=== PATIENT | female | born 1990 | race Two or more races ===

== ENCOUNTER → 2017-01-02 | Outpatient (CLI) | payer BC ==
[2017-01-02 09:27] LABS: Basophils # (auto) 0 uL; Basophils % (auto) 0.5 % (0.0-2.0); Eosinophils # (auto) 0.2 uL; Eosinophils % (auto) 2.1 % (0.0-7.0); Hematocrit 39.4 % (36.0-46.0); Hemoglobin 13.7 g/dL (12.2-16.2); Lymphocytes # (auto) 1.4 uL; Lymphocytes % (auto) 13.2 % (10.0-50.0); Mean Corpuscular Hemoglobin 33.5 pg (28.0-32.0); Mean Corpuscular Hgb Conc. 34.8 g/dL (32.0-36.0); Mean Corpuscular Volume 96.2 fL (80.0-100.0); Mean Platelet Volume 8.4 fL (6.9-10.8); Monocytes # (auto) 0.6 uL; Monocytes % (auto) 5.7 % (0.0-12.0); Neutrophils # (auto) 8.2 uL; Neutrophils % (auto) 78.5 % (37.0-80.0); Platelet Count (auto) 255 10^3/uL (140-450); Red Cell Distribution Width 13.1 % (11.8-14.3); White Blood Cell 10.5 10^3/uL (4.4-10.8)
== END | disposition home or self-care (01) ==
LOC: LAB 08:51
PROVIDERS: ATTEND Obstetrics & Gynecology
DX: Z34.80 Encounter for supervision of other normal pregnancy, unspecified trimester (principal); Z31.430 Encounter of female for testing for genetic disease carrier status for procreative management; R82.79 Other abnormal findings on microbiological examination of urine
CPT/HCPCS: 36415; 80307; 81220; 84702; 85025; 86703; 86762; 86850; 86900; 86901; 87086; 87340

== ENCOUNTER → 2017-04-13 | Outpatient (CLI) | payer BC ==
[2017-04-13 08:16] LABS: Basophils # (auto) 0 uL; Basophils % (auto) 0.1 % (0.0-2.0); Eosinophils # (auto) 0.4 uL; Eosinophils % (auto) 4.2 % (0.0-7.0); Hematocrit 36.6 % (36.0-46.0); Hemoglobin 12.4 g/dL (12.2-16.2); Lymphocytes # (auto) 1.4 uL; Lymphocytes % (auto) 13.7 % (10.0-50.0); Mean Corpuscular Hemoglobin 33.6 pg (28.0-32.0); Mean Corpuscular Hgb Conc. 33.9 g/dL (32.0-36.0); Mean Corpuscular Volume 98.9 fL (80.0-100.0); Monocytes # (auto) 0.8 uL; Monocytes % (auto) 7.7 % (0.0-12.0); Neutrophils # (auto) 7.4 uL; Neutrophils % (auto) 74.3 % (37.0-80.0); Platelet Count (auto) 251 10^3/uL (140-450); Red Cell Distribution Width 12.8 % (11.8-14.3)
== END | disposition home or self-care (01) ==
LOC: LAB 07:59
PROVIDERS: ATTEND Obstetrics & Gynecology
DX: O99.810 Abnormal glucose complicating pregnancy (principal); Z3A.00 Weeks of gestation of pregnancy not specified
CPT/HCPCS: 36415; 82951; 83036; 85025

== ENCOUNTER → 2017-06-21 | Outpatient (CLI) | payer BC ==
[2017-06-21 14:17] LABS: Basophils # (auto) 0 uL; Basophils % (auto) 0.2 % (0.0-2.0); Eosinophils # (auto) 0.1 uL; Eosinophils % (auto) 1.2 % (0.0-7.0); Hematocrit 35.3 % (36.0-46.0); Hemoglobin 12.2 g/dL (12.2-16.2); Lymphocytes # (auto) 1.4 uL; Lymphocytes % (auto) 14.3 % (10.0-50.0); Mean Corpuscular Hemoglobin 33.4 pg (28.0-32.0); Mean Corpuscular Hgb Conc. 34.7 g/dL (32.0-36.0); Mean Corpuscular Volume 96.5 fL (80.0-100.0); Monocytes # (auto) 0.9 uL; Monocytes % (auto) 9.5 % (0.0-12.0); Neutrophils # (auto) 7.4 uL; Neutrophils % (auto) 74.8 % (37.0-80.0); Platelet Count (auto) 266 10^3/uL (140-450); Red Blood Cells 3.66 10^6/uL (4.0-5.20); Red Cell Distribution Width 12.8 % (11.8-14.3); White Blood Cell 9.9 10^3/uL (4.4-10.8)
== END | disposition home or self-care (01) ==
LOC: LAB 13:49
PROVIDERS: ATTEND Obstetrics & Gynecology
DX: Z34.80 Encounter for supervision of other normal pregnancy, unspecified trimester (principal); Z3A.00 Weeks of gestation of pregnancy not specified
CPT/HCPCS: 36415; 85025

== ENCOUNTER 2017-07-06 04:20 | Inpatient (IN) | payer BC ==
[2017-07-06] VITALS (13 sets, daily range): BP systolic 96–110; BP diastolic 46–62
[~2017-07-06] VITALS: Ht 165.1 cm; Wt 78.9 kg
[2017-07-06] MEDS ORDERED: LACTATED RINGER'S 1,000 ML IV SCH (04:41)
[2017-07-06] MEDS ORDERED: PREN-96 PO (04:45)
[2017-07-06 05:22] LABS: Basophils # (auto) 0 uL; Basophils % (auto) 0.2 % (0.0-2.0); Eosinophils # (auto) 0.1 uL; Eosinophils % (auto) 1.1 % (0.0-7.0); Hematocrit 34.6 % (36.0-46.0); Hemoglobin 11.8 g/dL (12.2-16.2); Lymphocytes # (auto) 1.6 uL; Lymphocytes % (auto) 18.8 % (10.0-50.0); Mean Corpuscular Hemoglobin 33.1 pg (28.0-32.0); Mean Corpuscular Hgb Conc. 34.1 g/dL (32.0-36.0); Mean Corpuscular Volume 96.9 fL (80.0-100.0); Monocytes # (auto) 0.7 uL; Monocytes % (auto) 8.7 % (0.0-12.0); Neutrophils # (auto) 6.1 uL; Neutrophils % (auto) 71.2 % (37.0-80.0); Nucleated Red Blood Cells % 0.1 %; Platelet Count (auto) 250 10^3/uL (140-450); Red Blood Cells 3.57 10^6/uL (4.0-5.20); White Blood Cell 8.5 10^3/uL (4.4-10.8)
[2017-07-06 05:27] LABS: Urine Bacteria FEW /hpf (None Seen); Urine Blood 1+ /uL (Negative); Urine Mucus FEW (None Seen); Urine Specific Gravity 1.025 (1.001-1.035); Urine WBC 3 /hpf (0 - 5)
[2017-07-06 05:35] LABS: Albumin 2.6 g/dL (3.4-5.0); BUN/Creatinine Ratio 20.8; Calcium 8.4 mg/dL (8.5-10.1); INR 0.86 (0.9-1.15); Partial Thromboplastin Time 28.7 sec (22.64-33.71); Potassium 3.9 mmol/L (3.5-5.1); Prothrombin Time 9.4 sec (9.37-12.3)
[2017-07-06 05:45] LABS: Bilirubin, Total 0.3 mg/dL (0.2-1.0); Total Protein 6.4 g/dL (6.4-8.2)
[2017-07-06] MEDS ORDERED: TETRACAINE 1% INJ 2 ML VIAL IJ ONE (07:05)
[2017-07-06] MEDS ORDERED: MORPHINE SULFATE 8mg/ml INJ SDV IV PRN ×2 (07:30→08:30)
[2017-07-06] MEDS ORDERED: KETOROLAC TROMETH 30 MG/ML 1ML VIAL IV ONE (07:30)
[2017-07-06] MEDS ORDERED: METOCLOPRAMIDE HCL 5MG/ml INJ 2ml VIAL IV ONE (07:30)
[2017-07-06] MEDS: LACT. RINGERS/OXYTOCIN 20UNITS 1,000 ML IV SCH ×2 (08:21→15:01)
[2017-07-06] MEDS ORDERED: ONDANSETRON HCL 4 MG/2 ML VIAL IV PRN (08:30)
[2017-07-06] MEDS: ceFAZolin 1GM/50ML 50 ML IV SCH ×2 (08:30→16:21)
[2017-07-06] MEDS ORDERED: NALOXONE HCL 0.4 MG/ML VIAL IV PRN (08:45)
[2017-07-06] MEDS: LACTATED RINGER'S 1,000 ML IV SCH ×2 (10:15→18:45)
[2017-07-06] MEDS: KETOROLAC TROMETH 30 MG/ML 1ML VIAL IV PRN ×3 (13:05→22:45)
[2017-07-06 20:04] LABS: Basophils # (auto) 0.1 uL; Basophils % (auto) 0.5 % (0.0-2.0); Eosinophils # (auto) 0.1 uL; Eosinophils % (auto) 0.4 % (0.0-7.0); Hematocrit 33.2 % (36.0-46.0); Hemoglobin 11.3 g/dL (12.2-16.2); Lymphocytes # (auto) 1.4 uL; Lymphocytes % (auto) 10.9 % (10.0-50.0); Mean Corpuscular Volume 97.1 fL (80.0-100.0); Monocytes # (auto) 0.9 uL; Monocytes % (auto) 7.1 % (0.0-12.0); Neutrophils # (auto) 10.2 uL; Neutrophils % (auto) 81.1 % (37.0-80.0); Nucleated Red Blood Cells % 0.1 %; Platelet Count (auto) 193 10^3/uL (140-450); Red Blood Cells 3.41 10^6/uL (4.0-5.20); Red Cell Distribution Width 12.9 % (11.8-14.3); White Blood Cell 12.6 10^3/uL (4.4-10.8)
[2017-07-07] VITALS (9 sets, daily range): BP systolic 91–111; BP diastolic 53–59
[2017-07-07] MEDS: ceFAZolin 1GM/50ML 50 ML IV SCH (00:35)
[2017-07-07 06:46] LABS: Basophils # (auto) 0 uL; Basophils % (auto) 0.2 % (0.0-2.0); Eosinophils # (auto) 0.1 uL; Eosinophils % (auto) 0.6 % (0.0-7.0); Hematocrit 32.5 % (36.0-46.0); Lymphocytes % (auto) 8.6 % (10.0-50.0); Mean Corpuscular Hemoglobin 33.1 pg (28.0-32.0); Mean Corpuscular Volume 97.3 fL (80.0-100.0); Monocytes # (auto) 0.9 uL; Monocytes % (auto) 7.5 % (0.0-12.0); Neutrophils # (auto) 9.5 uL; Neutrophils % (auto) 83.1 % (37.0-80.0); Platelet Count (auto) 208 10^3/uL (140-450); Red Blood Cells 3.33 10^6/uL (4.0-5.20); White Blood Cell 11.5 10^3/uL (4.4-10.8)
[2017-07-07] MEDS: KETOROLAC TROMETH 30 MG/ML 1ML VIAL IV PRN (06:56)
[2017-07-07] MEDS ORDERED: IBUPROFEN 800 MG TAB PO PRN (07:45)
[2017-07-07] MEDS ORDERED: BISACODYL 10 MG RECT SUPP PR PRN (07:45)
[2017-07-07] MEDS ORDERED: HYDROcodone-ACET 5/325MG TAB PO PRN ×3 (07:45→09:15)
[2017-07-07] MEDS ORDERED: SIMETHICONE 80 MG CHEWABLE TABLET PO PRN (09:15)
[2017-07-07] MEDS: DOCUSATE CALCIUM 240 MG CAP PO SCH (09:37)
[2017-07-07] MEDS ORDERED: DOCUSATE SOD 100 MG CAP PO PRN (10:00)
[2017-07-07] MEDS: DOCUSATE SOD 100 MG CAP PO SCH ×2 (10:00→21:26)
[2017-07-07] MEDS: IBUPROFEN 800 MG TAB PO PRN ×2 (10:52→18:51)
[2017-07-07] MEDS ORDERED: SIMETHICONE 80 MG CHEWABLE TABLET PO SCH (12:00)
[2017-07-07] MEDS: HYDROcodone-ACET 5/325MG TAB PO PRN ×2 (17:45→23:31)
[2017-07-07] MEDS ORDERED: TETANUS-DIPTH-ACEL PERTUSSIS 0.5ML SYRG IM ONE (18:15)
[2017-07-08] MEDS: IBUPROFEN 800 MG TAB PO PRN ×2 (02:58→13:15)
[2017-07-08 03:00] VITALS: BP 93/59
[2017-07-08] MEDS: HYDROcodone-ACET 5/325MG TAB PO PRN ×2 (05:52→09:41)
[2017-07-08 07:00] VITALS: BP 87/55
[2017-07-08] MEDS: DOCUSATE SOD 100 MG CAP PO SCH (09:33)
[2017-07-08] MEDS: DOCUSATE CALCIUM 240 MG CAP PO SCH (09:33)
[2017-07-08 11:10] VITALS: BP 103/72
== END 2017-07-08 13:25 | disposition home or self-care (01) | DRG 766 ==
LOC: LDRP 04:20 → EDBD 04:20 → LDRP 08:11
PROVIDERS: ADMIT Obstetrics & Gynecology; ATTEND Obstetrics & Gynecology
PROC: 10D00Z1 Extraction of Products of Conception, Low, Open Approach (ICD-10-PCS; principal; 2017-07-06 07:32)
DX: O34.211 Maternal care for low transverse scar from previous cesarean delivery (principal); Z23 Encounter for immunization; Z37.0 Single live birth; Z3A.38 38 weeks gestation of pregnancy
CPT/HCPCS: 36415; 51702; 59025; 80053; 81001; 85025; 85610; 85730; 86850; 86900; 86901; 90715; 93970; 96365; 96366; 96372; J0690; J1885

== ENCOUNTER 2019-05-30 04:10 | Inpatient (IN) | payer BC ==
[~2019-05-30] VITALS: Ht 1 cm; Wt 0.5 kg
[2019-05-30] VITALS (13 sets, daily range): BP systolic 87–123; BP diastolic 53–76
[~2019-05-30 04:10] MED LIST: PREN-96 PO
[2019-05-30] MEDS ORDERED: LACTATED RINGER'S 1,000 ML IV SCH (04:22)
[2019-05-30 05:33] LABS: Basophils # (auto) 0 10 ^3/uL (0-0.2); Basophils % (auto) 0.4 % (0.0-2.0); Eosinophils # (auto) 0.1 10 ^3/uL (0-0.8); Eosinophils % (auto) 0.8 % (0.0-7.0); Hemoglobin 11.3 g/dL (12.2-16.2); Lymphocytes # (auto) 1.6 10 ^3/uL (0.4-5.4); Lymphocytes % (auto) 17.4 % (10.0-50.0); Mean Corpuscular Hemoglobin 31.1 pg (28.0-32.0); Mean Corpuscular Hgb Conc. 34.4 g/dL (32.0-36.0); Mean Corpuscular Volume 90.6 fL (80.0-100.0); Monocytes # (auto) 0.7 10 ^3/uL (0-1.3); Monocytes % (auto) 7.9 % (0.0-12.0); Neutrophils # (auto) 6.8 10 ^3/uL (1.6-8.6); Neutrophils % (auto) 73.5 % (37.0-80.0); Platelet Count (auto) 271 10^3/uL (140-450); Red Blood Cells 3.64 10^6/uL (4.0-5.20); Red Cell Distribution Width 13.8 % (11.8-14.3); White Blood Cell 9.3 10^3/uL (4.4-10.8)
[2019-05-30 05:42] LABS: Urine Bacteria FEW /hpf (None Seen); Urine Blood TRACE /uL (Negative); Urine Hyaline Cast FEW /lpf (0 - 2); Urine Mucus FEW (None Seen); Urine Specific Gravity 1.026 (1.001-1.035); Urine WBC 1 /hpf (0 - 5)
[2019-05-30 05:52] LABS: Albumin 2.1 g/dL (3.4-5.0); BUN/Creatinine Ratio 21.3; Calcium 8.1 mg/dL (8.5-10.1); INR 0.95 (0.9-1.15); Partial Thromboplastin Time 27.8 sec (23.64-32.05); Potassium 3.8 mmol/L (3.5-5.1)
[2019-05-30 05:55] LABS: Bilirubin, Total 0.3 mg/dL (0.2-1.0); Total Protein 6.5 g/dL (6.4-8.2)
[2019-05-30] MEDS ORDERED: TETRACAINE 1% INJ 2 ML VIAL IJ ONE (07:18)
[2019-05-30] MEDS ORDERED: MORPHINE SULF(PF) 0.5MG/ML 10ML VIAL ONE (07:42)
[2019-05-30] MEDS ORDERED: ePHEDrine SULFATE 50 MG/ML AMP ONE ×2 (07:44→08:13)
[2019-05-30] MEDS ORDERED: PHENYLEPHRINE HCL 10 MG/ML VL ONE (07:44)
[2019-05-30] MEDS ORDERED: ceFAZolin 1GM VL ONE (07:46)
[2019-05-30] MEDS ORDERED: OXYTOCIN 10 UNIT/ML 10ML VIAL ONE (07:46)
[2019-05-30] MEDS ORDERED: METOCLOPRAMIDE HCL 5MG/ml INJ 2ml VIAL ONE (08:08)
[2019-05-30] MEDS ORDERED: MIDAZOLAM HCL 1MG/1ML-2 ML VIAL ONE (08:26)
[2019-05-30] MEDS ORDERED: NALOXONE HCL 0.4 MG/ML VIAL IV PRN ×2 (09:00)
[2019-05-30] MEDS ORDERED: ONDANSETRON HCL 4 MG/2 ML VIAL IV PRN ×3 (09:00→09:30)
[2019-05-30] MEDS ORDERED: HYDROmorphone HCL 2 MG/ML VL IV PRN (09:00)
[2019-05-30] MEDS ORDERED: diphenhdrAMINE HCL 50 MG/1 ML VL IV PRN (09:00)
[2019-05-30] MEDS ORDERED: KETOROLAC TROMETH 15 mg/ml 1ML VL IV PRN (09:00)
[2019-05-30] MEDS ORDERED: ePHEDrine SULFATE 50 MG/ML AMP IV PRN (09:00)
[2019-05-30] MEDS ORDERED: ACETAMINOPHEN IV 1000 MG/100ML (10MG/ML) IV ONE (09:30)
[2019-05-30] MEDS ORDERED: ceFAZolin 1GM/50ML 50 ML IV SCH (09:30)
--- NOTE | 2019-05-30 10:05 | NUR ---
Post Op for LDRP: Received patient from PACU via bed to room 108B. Patient A/A/Ox4, abdominal binder and bilateral SCD's are in place, IV fluids placed on pump and infusing a 125 ml/hr per Dr Bishop order, incisional site dressing clean/dry/intact and Main Catheter to gravity draining clear yellow urine. Incentive Spirometer at bedside and instruction on proper use with return demonstration done by patient. Pt passed gas during fundal massage. Pt denies pain at this time, vss, no s/s of distress noted at this time.
--- NOTE | 2019-05-30 11:25 | NUR ---
ROUNDS MADE, VSS, PT CONTINUES TO DENY PAIN REQUIRING MEDICATION. PT TOLERATED CLEAR LIQUID WELL, NO S/S OF DISTRESS NOTED AT THIS TIME.
[2019-05-30] MEDS: HYDROmorphone HCL 2 MG/ML VL IV PRN ×2 (12:49→16:49)
--- NOTE | 2019-05-30 12:49 | NUR ---
PT MEDICATED WITH DILAUDID 1MG IVP PER ORDERS FOR SEVERE ABD PAIN OF 7/10.
--- NOTE | 2019-05-30 14:38 | NUR ---
PT MEDICATED WITH ZOFRAN 4MG IVP PER ORDERS FOR C/O NAUSEA AND VOMITING X2.
[2019-05-30] MEDS: LACTATED RINGER'S 1,000 ML IV SCH (15:49)
[2019-05-30] MEDS: ceFAZolin 1GM/50ML 50 ML IV SCH (15:50)
--- NOTE | 2019-05-30 16:00 | NUR ---
GORAN CARE COMPLETE, GORAN PADS CHANGED, LOCHIA NOTED SCANT, PT TOLERATED WELL. GARCIA CATH DRAINED, 1200 ML'S OF CLEAR, YELLOW URINE NOTED.
[2019-05-30] MEDS ORDERED: ACETAMINOPHEN IV 1000 MG/100ML (10MG/ML) IV PRN (17:30)
--- NOTE | 2019-05-30 17:50 | NUR ---
DR BRIONES NOTIFIED AND INFORMED OF PT'S BP IN THE 80/50'S X2, AND 3 ROUNDS OF EMESIS. DOCTOR STATES IT'S OKAY TO GIVE PT A 200 ML BOLUS BE CAUTIOUS OF FLUID OVERLOAD. DOCTOR ALSO INFORMED THAT PT IS DECLINING TORADOL THAT IS SCHEDULED AT 1800.
--- NOTE | 2019-05-30 18:15 | NUR ---
REPORT ON STABLE PT TO Dereck CHU RN.
--- NOTE | 2019-05-30 18:40 | NUR ---
Updated white board and introduced to patient. Main cath anchor placed to right inner thigh.
--- NOTE | 2019-05-30 19:00 | NUR ---
Reviewed plan of care, discussed goals and safety/hand hygiene. Both pt and verbalized understanding. Initiated assessment. Pt displays positive rehan's sign.
--- NOTE | 2019-05-30 19:00 | NUR ---
Teaching: Reviewed information in [facility] booklet with patient. Discussed benefits of and risks associated with not . Discussed different positions, proper latch, feeding cues, and baby-led . Provided information of medication side effects related to . All questions and concerns addressed at this time. Patient verbalized understanding of information.
--- NOTE | 2019-05-30 19:15 | NUR ---
Orders received from Dr Riley for bilateral doppler study on both calfs. orders entered.
[2019-05-30] MEDS: KETOROLAC TROMETH 15 mg/ml 1ML VL IV SCH (20:49)
--- NOTE | 2019-05-30 21:30 | NUR ---
Pt out of bed to bathroom with minimal assist to perform pericare. Pt denies dizziness, lightheadedness, or pain. Out of room ambulated 600 feet, tolerated well.
--- NOTE | 2019-05-30 22:00 | NUR ---
LInen changed performed and room tidies.
--- NOTE | 2019-05-30 22:10 | NUR ---
Pt returns to freshly changed bed and bilateral SCD's placed on calves. pt verbalized understanding
[2019-05-31] VITALS (7 sets, daily range): BP systolic 78–104; BP diastolic 47–66
[2019-05-31] MEDS: ceFAZolin 1GM/50ML 50 ML IV SCH ×2 (00:23→08:19)
[2019-05-31] MEDS: LACTATED RINGER'S 1,000 ML IV SCH ×2 (00:32→08:19)
[2019-05-31] MEDS: KETOROLAC TROMETH 15 mg/ml 1ML VL IV SCH ×2 (02:38→08:19)
[2019-05-31 05:07] LABS: RPR Non Reactive (Non Reactive)
[2019-05-31 06:24] LABS: Basophils # (auto) 0 10 ^3/uL (0-0.2); Basophils % (auto) 0.1 % (0.0-2.0); Eosinophils # (auto) 0.1 10 ^3/uL (0-0.8); Eosinophils % (auto) 0.8 % (0.0-7.0); Hematocrit 30.4 % (36.0-46.0); Hemoglobin 10.3 g/dL (12.2-16.2); Lymphocytes # (auto) 1.4 10 ^3/uL (0.4-5.4); Mean Corpuscular Hemoglobin 30.7 pg (28.0-32.0); Mean Corpuscular Hgb Conc. 33.9 g/dL (32.0-36.0); Mean Corpuscular Volume 90.6 fL (80.0-100.0); Monocytes # (auto) 0.9 10 ^3/uL (0-1.3); Monocytes % (auto) 8.9 % (0.0-12.0); Neutrophils # (auto) 7.2 10 ^3/uL (1.6-8.6); Neutrophils % (auto) 75.2 % (37.0-80.0); Nucleated Red Blood Cells % 0.1 %; Platelet Count (auto) 216 10^3/uL (140-450); Red Blood Cells 3.35 10^6/uL (4.0-5.20); Red Cell Distribution Width 13.8 % (11.8-14.3); White Blood Cell 9.6 10^3/uL (4.4-10.8)
[2019-05-31] MEDS ORDERED: LACTATED RINGER'S 1,000 ML IV SCH (08:06)
--- NOTE | 2019-05-31 08:06 | NUR ---
GARCIA CATHETER DISCONTINUE PER ORDERS, DRESSING OFF, INCISION DRY AND INTACT WITHOUT REDNESS
[2019-05-31] MEDS ORDERED: BISACODYL 10 MG RECT SUPP PR PRN (08:15)
[2019-05-31] MEDS ORDERED: HYDROcodone-ACET 5/325MG TAB PO PRN (08:15)
[2019-05-31] MEDS: FERROUS SULFATE 325 MG TAB PO SCH ×3 (10:45→22:58)
[2019-05-31] MEDS: DOCUSATE CALCIUM 240 MG CAP PO SCH (10:45)
[2019-05-31] MEDS: IBUPROFEN 800 MG TAB PO PRN ×2 (10:45→20:46)
[2019-05-31] MEDS: HYDROcodone-ACET 5/325MG TAB PO PRN ×3 (12:28→22:59)
[2019-05-31] MEDS: SIMETHICONE 80 MG CHEWABLE TABLET PO SCH ×4 (12:28→22:58)
--- NOTE | 2019-05-31 19:00 | NUR ---
Initiated assessment. FOB at bedside. Reviewed plan of care and pain scale. Pt verbalized understanding. all questions answered. See flowsheet for complete data. Pt out of bed, denies pain.
[2019-06-01 03:30] VITALS: BP 86/61
[2019-06-01] MEDS: IBUPROFEN 800 MG TAB PO PRN (04:54)
[2019-06-01 07:15] VITALS: BP 98/76
[2019-06-01] MEDS: DOCUSATE CALCIUM 240 MG CAP PO SCH (10:24)
--- NOTE | 2019-06-01 10:25 | NUR ---
C/S Staple Removal DC Note: Orders received to remove shellie. Shellie removed using clean technique. Lower abdominal incision approximated, no drainage/redness/inflammation visualized at time of removal. Steri-strips applied. Education provided on incisional care. Patient verbalized understanding and willingness to comply to instructions/teaching provided.
--- NOTE | 2019-06-01 10:30 | NUR ---
Discharge: Discharge instructions given as ordered. Pt encouraged to follow up with PUBLICATION MANAGER as instructed. All questions and concerns addressed. Patient verbalized understanding. Medication reconciliation completed and copy given to patient. All required/requested vaccines given and copies of vaccinations given to patient. Patient encouraged to prepare to depart unit.
[2019-06-01] MEDS ORDERED: FERROUS SULFATE 325 MG TAB PO ONE (11:00)
[2019-06-01 11:30] VITALS: BP 106/70
[2019-06-01] MEDS: SIMETHICONE 80 MG CHEWABLE TABLET PO SCH (11:52)
--- NOTE | 2019-06-01 12:30 | NUR ---
IV removal IV DC'd with clean technique, catheter fully intact. Pressure dressing applied to site. Patient tolerated well.
[2019-06-01] MEDS ORDERED: PHENYLEPHRINE HCL 10 MG/ML VL IV ONE (12:49)
--- NOTE | 2019-06-01 12:50 | NUR ---
Discharge: Patient ambulates to vehicle with all personal belongings, accompanied by staff and family member. No distress noted at time of departure, no adverse changes in status since initial assessment.
== END 2019-06-01 12:50 | disposition home or self-care (01) | DRG 785 ==
LOC: LDRP 04:10
PROVIDERS: ADMIT Obstetrics & Gynecology; ATTEND Obstetrics & Gynecology
PROC: 0UL70CZ Occlusion of Bilateral Fallopian Tubes with Extraluminal Device, Open Approach (ICD-10-PCS; 2019-05-30)
PROC: 10D00Z1 Extraction of Products of Conception, Low, Open Approach (ICD-10-PCS; principal; 2019-05-30 07:50)
DX: O34.211 Maternal care for low transverse scar from previous cesarean delivery (principal); O69.81X0 Labor and delivery complicated by cord around neck, without compression, not applicable or unspecified; Z3A.39 39 weeks gestation of pregnancy; Z37.0 Single live birth; Z30.2 Encounter for sterilization
CPT/HCPCS: 36415; 51702; 59025; 80053; 81001; 81002; 84112; 85025; 85610; 85730; 86592; 86850; 86900; 86901; 93970; 94760; 96361; 96365; 96366; 96374; 96375; G0378; J0690; J2250; J2405; J2590

== ENCOUNTER 2023-07-27 02:48 | Emergency (ER) | payer BC ==
[~2023-07-27] VITALS: Ht 167.6 cm; Wt 71.1 kg
[2023-07-27 03:41] LABS: Urine Bacteria None Seen /hpf (None Seen)
[2023-07-27 04:05] LABS: Basophils # (auto) 0 10 ^3/uL (0-0.2); Basophils % (auto) 0.5 % (0.0-2.0); Eosinophils # (auto) 0.1 10 ^3/uL (0-0.8); Eosinophils % (auto) 1.4 % (0.0-7.0); Hematocrit 36.5 % (36.0-46.0); Hemoglobin 12.1 g/dL (12.2-16.2); Lymphocytes # (auto) 1.5 10 ^3/uL (0.4-5.4); Lymphocytes % (auto) 22.5 % (10.0-50.0); Mean Corpuscular Hemoglobin 31.1 pg (28.0-32.0); Mean Corpuscular Hgb Conc. 33.2 g/dL (32.0-36.0); Mean Corpuscular Volume 93.6 fL (80.0-100.0); Monocytes # (auto) 0.6 10 ^3/uL (0-1.3); Monocytes % (auto) 8.6 % (0.0-12.0); Neutrophils # (auto) 4.4 10 ^3/uL (1.6-8.6); Nucleated Red Blood Cells % 0.1 %; Red Cell Distribution Width 13.6 % (11.8-14.3); White Blood Cell 6.5 10^3/uL (4.4-10.8)
[2023-07-27 04:08] LABS: Urine Blood 2+ /uL (Negative); Urine Clarity Clear (Clear); Urine Color Yellow (Yellow); Urine Mucus FEW (None Seen); Urine Protein, UAD TRACE (Negative); Urine Urobilinogen Normal (Negative); Urine WBC 5 /hpf (0 - 5)
[2023-07-27 04:31] LABS: Alanine Aminotransferase 17 U/L (7-40); Albumin 4.2 g/dL (3.2-4.8); Alkaline Phosphatase 51 U/L (46-116); Anion Gap 6 (5-15); Aspartate Aminotransferase 18 U/L (13-40); BUN/Creatinine Ratio 10.1 (10.0-20.0); Bilirubin, Total 0.5 mg/dL (0.2-1.0); Blood Urea Nitrogen 7 mg/dL (9-23); Calcium 9.1 mg/dL (8.7-10.4); Carbon Dioxide 27 mmol/L (20-30); Chloride 109 mmol/L (98-107); Glucose 95 mg/dL (74-106); Lipase 30 U/L (12-53); Potassium 3.4 mmol/L (3.5-5.1); Sodium 142 mmol/L (136-145); Total Protein 6.9 g/dL (5.7-8.2)
[2023-07-27] MEDS ORDERED: TAMS-35 PO (06:58)
[2023-07-27] MEDS ORDERED: IBUP-1456 PO (06:58)
[2023-07-27 07:20] VITALS: BP 104/64; PULSE 60; RESP 18; TEMP 98.8; O2SAT 99
== END 2023-07-27 07:22 | disposition home or self-care (01) ==
LOC: ER 02:48
DX: N20.0 Calculus of kidney (principal); Z79.1 Long term (current) use of non-steroidal anti-inflammatories (NSAID); Z79.899 Other long term (current) drug therapy
CPT/HCPCS: 36415; 74176; 80053; 81001; 81025; 83605; 83690; 85025; 87040